=== PATIENT | male | born 1950 | race Caucasian/White ===

== ENCOUNTER 2017-06-21 06:18 | Emergency (ER) | payer MEDICARE, MEDICAID ==
[~2017-06-21] VITALS: Ht 170.2 cm; Wt 92.4 kg
[2017-06-21 07:25] VITALS: BP 151/92
== END 2017-06-21 07:28 | disposition home or self-care (01) ==
LOC: ER 06:19
DX: R22.1 Localized swelling, mass and lump, neck (principal); R58 Hemorrhage, not elsewhere classified; Z88.5 Allergy status to narcotic agent
CPT/HCPCS: 99281

== ENCOUNTER 2018-01-28 08:42 | Emergency (ER) | payer MEDICARE, MEDICAID ==
[~2018-01-28] VITALS: Ht 172.7 cm; Wt 86.4 kg
[2018-01-28] MEDS ORDERED: CefTRIAXone 1000mg IM Kit (w/lidocaine diluent) IM ONE (09:05)
[2018-01-28 09:29] VITALS: BP 146/98
[2018-01-28] MEDS ORDERED: TETanus/Pertussis (Acell)/Diphther VAC/PF (Tdap-Adult) 0.5ml syringe IM ONE (09:45)
[2018-01-28] MEDS ORDERED: LIDOcaine 1.5% w/epinephrine 1:200,000 5ml ampul IJ ONE (09:45)
[2018-01-28] MEDS ORDERED: CEPH-571 PO (10:07)
== END 2018-01-28 10:33 | disposition home or self-care (01) ==
LOC: ER 08:42
DX: L03.115 Cellulitis of right lower limb (principal); Z88.5 Allergy status to narcotic agent
CPT/HCPCS: 10060; 73590; 96372; 99284; J0696; J3490

== ENCOUNTER 2020-09-16 20:11 | Emergency (ER) | payer MEDICARE, MEDICAID ==
[~2020-09-16] VITALS: Ht 170.2 cm; Wt 88.6 kg
[~2020-09-16 20:11] MED LIST: CEPH-571 PO
[2020-09-16 20:43] LABS: CLARITY,URINE CLOUDY (Clear); GLUCOSE, URINE NEGATIVE (Neg); KETONES,URINE NEGATIVE (Neg); LEUKOCYTE ESTERASE ,URINE LARGE (Neg); NITRITES, URINE NEGATIVE (Neg); OCCULT BLOOD,URINE LARGE (Neg); PROTEIN,URINE TRACE mg/dl (Neg); UROBILINOGEN,URINE 0.2 E.U/dL (0.2-1.0)
[2020-09-16 20:44] LABS: COLOR,URINE AMBER (Yellow); UA COLLECTION TYPE CLN CATCH MIDSTREAM
[2020-09-16 20:57] LABS: BACTERIA,URINE NONE SEEN /HPF (Neg); RBC,URINE TNTC /HPF (0-2); SQUAMOUS EPITHELIAL CELL,UR NONE SEEN /LPF (FEW)
[2020-09-16 20:58] LABS: MUCUS STRANDS FEW /LPF (Neg)
[2020-09-16 20:59] LABS: BASOPHILS % (AUTO) 0.3 % (0-1); EOSINOPHILS # (AUTO) 0.1 X10'3 (0-0.9); EOSINOPHILS % (AUTO) 0.7 % (0-6); HEMATOCRIT 44.8 % (42.0-52.0); HEMOGLOBIN 15.7 g/dl (14.0-17.9); LYMPHOCYTES % (AUTO) 12.6 % (21-51); MEAN CORPUSCULAR HEMOGLOBIN 35.1 PG (27.0-31.0); MEAN CORPUSCULAR HGB CONC 34.9 g/dL (33.0-36.5); MEAN CORPUSCULAR VOLUME 100.5 FL (78-98); MONOCYTES # (AUTO) 0.5 X10'3 (0-0.9); MONOCYTES % (AUTO) 6.1 % (2-12); NEUTROPHILS # (AUTO) 6.7 X10'3 (1.8-7.7); NEUTROPHILS % (AUTO) 80.3 % (42-75); PLATELET COUNT 292 X10'3 (140-440); RED BLOOD COUNT 4.46 X10'6 (4.70-6.10); RED CELL DISTRIBUTION WIDTH 12.2 % (11.5-14.5); WHITE BLOOD COUNT 8.3 X10'3 (4.5-11.0)
[2020-09-16 21:02] LABS: ALANINE AMINOTRANSFERASE 27 U/L (12-78); ALBUMIN 3.6 G/DL (3.4-5.0); ALBUMIN/GLOBULIN RATIO 0.9 (1.1-1.5); ALKALINE PHOSPHATASE 58 IU/L (46-116); ANION GAP 7 (8-16); ASPARTATE AMINO TRANSFERASE 20 U/L (10-37); BILIRUBIN,TOTAL 0.8 MG/DL (0.1-1.0); BLOOD UREA NITROGEN 17 MG/DL (7-18); BUN/CREATININE RATIO 18.9 (5.4-32.0); CALCIUM 8.5 MG/DL (8.5-10.1); CHLORIDE 103 MMOL/L (99-107); GLUCOSE 113 MG/DL (70-104); SODIUM 139 MMOL/L (135-145); TOTAL CARBON DIOXIDE 28.9 MMOL/L (24-32); TOTAL PROTEIN 7.5 G/DL (6.4-8.2); eGFR 83 ML/MIN
[2020-09-16] MEDS ORDERED: tamsulosin 0.4mg capsule PO STA (22:27)
[2020-09-16] MEDS ORDERED: ketorolac trometh. 30mg/ml inj. IV ONE (22:30)
[2020-09-16] MEDS ORDERED: normal saline 1000ML IV soln IVB ONE (22:30)
[2020-09-16] MEDS ORDERED: CefTRIAXone 2gm/D5W 50ml BAG 50 ML IV ONE (23:10)
[2020-09-16] MEDS ORDERED: CEPH250T PO (23:10)
[2020-09-17 00:10] VITALS: BP 164/91
== END 2020-09-17 00:11 | disposition home or self-care (01) ==
LOC: ER 20:11
DX: N30.01 Acute cystitis with hematuria (principal); E83.59 Other disorders of calcium metabolism; N29 Other disorders of kidney and ureter in diseases classified elsewhere; Z88.5 Allergy status to narcotic agent; Z88.8 Allergy status to other drugs, medicaments and biological substances
CPT/HCPCS: 36415; 74176; 80053; 81001; 85025; 87088; 96365; 96375; 99284; J0696; J1885; J7030

== ENCOUNTER 2024-02-01 12:30 | Outpatient (CLI) | payer MEDICARE, MEDICAID ==
[~2024-02-01 12:30] MED LIST changes: +ONDA-104 PO
== END 2024-02-01 23:59 | disposition home or self-care (01) ==
LOC: RAD 12:30
PROVIDERS: ATTEND Physician Assistant
DX: M79.89 Other specified soft tissue disorders (principal)
CPT/HCPCS: 73610; 73630

== ENCOUNTER 2024-08-22 12:51 | Outpatient (CLI) | payer MEDICARE, MEDICAID ==
--- NOTE | 2024-08-22 14:02 | RADIOLOGY REPORT ---
MRI BRAIN WITHOUT CONTRAST CLINICAL HISTORY: ATAXIA, UNSPECIFIED TECHNIQUE: Multiplanar, multisequence MR images of the brain without intravenous contrast. Comparison: None FINDINGS: There is no restricted diffusion. There are chronic small-vessel ischemic changes in the periventricu lar white matter. There is no evidence of hemorrhage, mass, mass effect or midline shift. There is no hydrocephalus or extra-axial fluid collection. The visualized intracranial vasculature demonstrates appropriate flow-voids. The sagittal midline structures appear unremarkable. The craniocervical junct ion is within normal limits. The calvarium demonstrates normal marrow signal. There is a retention cy st in the right maxillary sinus. The mastoid air cells are clear. IMPRESSION: 1. There is no acute intracranial process. HS:Y
== END 2024-08-22 23:59 | disposition home or self-care (01) ==
LOC: MRI 12:51
PROVIDERS: ATTEND Family Medicine
DX: R27.0 Ataxia, unspecified (principal)
CPT/HCPCS: 70551

== ENCOUNTER 2025-02-03 12:27 | Day surgery (SDC) | payer MEDICARE, MEDICAID ==
[2025-02-02 12:00] LABS: MEAN PLATELET VOLUME 7.8 FL (7.4-10.4); RED CELL DISTRIBUTION WIDTH 13.7 % (11.5-14.5)
[2025-02-02 12:14] LABS: APTT 38 SECONDS (22-32); INR 2.4 INR
[2025-02-02 12:18] LABS: CHOL/HDL RATIO 5.3 (0.00-4.99); CREATININE 0.75 MG/DL (0.60-1.10); LDL CHOLESTEROL 182 MG/DL (50-100); TOTAL CARBON DIOXIDE 27.9 MMOL/L (24-32); eGFR > 90 ML/MIN
[~2025-02-03] VITALS: Ht 167.6 cm; Wt 91.2 kg
[2025-02-03 12:48] VITALS: BP 124/89; PULSE 99; RESP 16; TEMP 97.7; O2SAT 96
--- NOTE | 2025-02-03 12:49 | ELECTROCARDIOGRAPH REPORT ---
[facility] Test Date: 2025-02-03 Test Time: 12:47:07 Pat Name: FÁTIMA BARROS Department: [facility] Patient ID: [facility]-[id number] Room: Gender: M [employer]: COTY : 1950 Requested By: KAYODE TRIMBLE Order Number: [id number] Reading MD: Dr. MISHA Solano Measurements Intervals [place] Rate: 113 P: 0 MT: 0 QRS: 92 QRSD: 111 T: 2 QT: 360 QTc: 494 Interpretive Statements Atrial fibrillation Right axis deviation Probable anteroseptal infarct, old Electronically Signed On 02-03-2025 17:35:[address] MISHA Solano Please click the below link to view image of tracing.
[2025-02-03] MEDS ORDERED: MIDAZolam 1mg/ml 10ml vial IV ONE (12:55)
[2025-02-03] MEDS ORDERED: fentaNYL/PF 50MCG/1 ML 2ML syringe IV ONE (12:55)
[2025-02-03] MEDS ORDERED: normal saline 1000ml 1,000 ML IV SCH (12:55)
[2025-02-03] MEDS ORDERED: LOSA25TA41 PO (12:56)
[2025-02-03] MEDS ORDERED: WARF3TAB56 PO (12:56)
[2025-02-03] MEDS ORDERED: AMIO200T72 PO (12:58)
[2025-02-03] MEDS ORDERED: CARV25TA3 PO (12:58)
[2025-02-03] MEDS ORDERED: midazolam 1 mg/ML 2ml injection ONE ×3 (14:49→16:11)
[2025-02-03] MEDS ORDERED: amiodarone 50MG/ML inj IV ONE (14:49)
[2025-02-03] MEDS ORDERED: fentaNYL/PF 50MCG/1 ML 2ML syringe ONE (14:49)
[2025-02-03] MEDS ORDERED: atropine 0.1mg/ml 10ml syringe ONE (14:49)
[2025-02-03 16:33] VITALS: BP 124/69; PULSE 66; RESP 16; O2SAT 96
--- NOTE | 2025-02-03 16:38 | PROCEDURE NOTE CC ---
Procedure Note Providers to CC CC: VIRGEN TRIMBLE MD ~ Description Planned Procedure Cardioversion Indications Symptomatic Atrial Fibrillation Post Operative Dx: Same Type of Anesthesia Moderate Sedation. Description It was confirmed that patient has been taking oral anticoagulation without interruption for at least 4 weeks. The appropriate time-out procedure was performed including proper identification of the patient, physician, procedure, documentation, and there were no safety issues identified. The patient participated actively in this. After sedation was achieved, the patient was placed in the supine position and hands free patches were placed on their chest in the AP-lateral position. 1 synchronized cardioversion was provided at 200 Joules with conversion to normal sinus rhythm. This was confirmed on EKG. Complication: None The patient tolerated the procedure well without complications. KAYODE TRIMBLE MD Feb 03, 2025 16:38
[2025-02-03 16:46] VITALS: BP 91/57; PULSE 64; RESP 16; O2SAT 96
--- NOTE | 2025-02-03 16:46 | ELECTROCARDIOGRAPH REPORT ---
[facility] Test Date: 2025-02-03 Test Time: 16:43:00 Pat Name: FÁTIMA BARROS Department: [facility] Patient ID: [facility]-[id number] Room: Gender: M [employer]: : 1950 Requested By: KAYODE TRIMBLE Order Number: [id number] Reading MD: Dr. MISHA Solano Measurements Intervals [place] Rate: 58 P: 19 CA: 150 QRS: 75 QRSD: 115 T: 0 QT: 481 QTc: 473 Interpretive Statements Sinus rhythm Incomplete right bundle branch block ST depr, consider ischemia, inferior leads Electronically Signed On 02-03-2025 17:35:[address] MISHA Solano Please click the below link to view image of tracing.
[2025-02-03 17:10] VITALS: BP 120/55; PULSE 68; RESP 16; O2SAT 96
== END 2025-02-03 17:15 | disposition home or self-care (01) ==
LOC: SSTAY O 12:27
PROVIDERS: ATTEND Student in an Organized Health Care Education/Training Program
DX: I48.91 Unspecified atrial fibrillation (principal); I45.10 Unspecified right bundle-branch block; I10 Essential (primary) hypertension; Z79.01 Long term (current) use of anticoagulants; Z79.82 Long term (current) use of aspirin; Z79.899 Other long term (current) drug therapy; Z88.5 Allergy status to narcotic agent
CPT/HCPCS: 36415; 80048; 80061; 85025; 85610; 85730; 92960; 93005; J2250; J3010; J7030; Z7610; 99152; 99153; J0282; J0461